=== PATIENT | male | born 1980 | race Caucasian/White ===

== ENCOUNTER 2017-02-04 23:22 | Emergency (ER) | payer MEDICAID ==
[~2017-02-04] VITALS: Ht 167.6 cm; Wt 100.0 kg
[~2017-02-04 23:22] MED LIST: NAPR250T
[2017-02-05 09:55] VITALS: BP 142/88
[2017-02-05] MEDS ORDERED: DIPHENHYDRAMINE 50MG CAPSULE PO ONE (10:45)
[2017-02-05] MEDS ORDERED: DEXAMETHASONE 10 MG/ML VIAL IM ONE (10:45)
== END 2017-02-05 11:55 | disposition home or self-care (01) ==
LOC: ER 02-05 01:40
DX: T78.40XA Allergy, unspecified, initial encounter (principal); L50.9 Urticaria, unspecified
CPT/HCPCS: 96372; 99283; J1100; Q0163